=== PATIENT | male | born 1985 ===

== ENCOUNTER 2020-12-30 10:21 | Emergency (ER) | payer MEDICAID, SELFPAY ==
[2020-12-30 12:13] VITALS: BP 117/70; PULSE 82; RESP 16; TEMP 36.5; O2SAT 98; BMI 26.6
--- NOTE | 2020-12-30 12:29 | ED.URI ---
HPI - URI/Sore Throat General Chief Complaint: Upper Respiratory Symptoms Stated Complaint: strep throat Time Seen by Provider: 12/30/20 12:14 Source: patient Mode of arrival: ambulatory Limitations: no limitations History of Present Illness HPI Narrative: 35 y/o male with history of recurrent Strep pharyngitis presenting with sore throat for the last 4 days. He states pain increases with swallowing. He noticed white patches yesterday. No fever, chills, N/V/D, SOB, chest pain or cough. He reports enlarged and painful LN in his neck. No difficulty handling secretions, normal voice, no neck swelling. MD elicited complaint: sore throat Onset (ago): day(s) (4) Consistency: constant Severity: moderate Able to tolerate fluids by mouth: Yes Exacerbating factors: swallowing Relieving factors: nothing Associated symptoms: denies other symptoms Treatments prior to arrival: none Related Data Previous Rx's Medication Instructions Recorded amoxicillin 500 mg PO BID #20 tab 12/30/20 Allergies Allergy/AdvReac Type Severity Reaction Status Date / Time No Known Allergies Allergy Verified 12/30/20 12:13 Review of Systems Review of Systems: Constitutional: No Fever, No Chills ENT/Mouth: + sore throat, No Rhinorrhea, No Swallowing Difficulty, +Painful swallowing Eyes: No Eye Pain, No Swelling, No Redness Cardiovascular: No Chest Pain, No SOB Respiratory: No Cough, No Sputum Gastrointestinal: No Nausea, No Vomiting Musculoskeletal: No joint pain, No Myalgias Neuro: No Headache Heme/Lymph: + Lymphadenopathy PMFSH Past Medical History Attestation statement: The following information was validated with the patient. Surgical History (Updated 12/30/20 @ 12:16 by Stormy Pacheco) History of appendectomy Social History Social History Advance Directives: Yes Advance Directives Information Provided: Yes Advance Directives on File: No Physical Exam Vital Signs: Vital Signs: Last Vital Signs Temp 97.7 F 12/30/20 12:13 Pulse 82 12/30/20 12:13 Resp 16 12/30/20 12:13 BP 117/70 12/30/20 12:13 Pulse Ox 98 12/30/20 12:13 Body Mass Index 26.6 Appearance: Alert. Oriented X3. No acute distress. Eyes: Pupils equal, round and reactive to light. ENT: Pharynx with moderate generalized erythema, small white ulceration on posterior pharynx. Normal voice. Neck: Normal inspection. Neck with mild submadnibular LAD, small shotty LN. CVS: Normal heart rate and rhythm. Pulses normal. Respiratory: No respiratory distress. Breath sounds normal. Skin: Skin warm and dry. Normal skin color. Normal skin turgor. No rashes. Extremities: No lower extremity edema. Neuro: Oriented X 3. Non-focal. Course Course Course Narrative: 35 y/o male presenting with sore throat x4 days. Exam is consistent with Strep pharyngitis. No evidence of peritonsillar abscess. He is nontoxic appearing with normal VS. Will treat with amoxicillin and have him f/u with his PCP. Stable for d/c home with supportive care. MDM - URI/Sore Throat Differential Diagnosis Differential diagnosis: Likely upper respiratory infection, otitis media, sinusitis, viral infection, bronchitis, influenza and pharyngitis Discharge Plan Discharge Clinical Impression: Pharyngitis Qualifiers: Pharyngitis/tonsillitis etiology: unspecified etiology Qualified Code(s): J02.9 - Acute pharyngitis, unspecified Patient Disposition: Home, Self-Care Instructions: Pharyngitis (ED), Strep Throat (ED) Additional Instructions: You are being treated for probable Strep throat. Take the antibiotic as directed. Use warm salt water gargles several times per day. Use over the counter Cloraseptic [place] or Cepacol lozenges to help numb the back of your throat. Take Motrin and/or Tylenol as needed for pain. Stay hydrated. If you have worsening symptoms come back to the ER for further evaluation. Prescriptions: New amoxicillin 500 mg tablet 500 mg PO BID Qty: 20 RF: 0 Interventions: ED Discharge Assessment Last Done: 12/30/20 12:50 Discharge Date/Time: 12/30/20 12:50
== END 2020-12-30 12:50 | disposition home or self-care (01) ==
PROVIDERS: Emergency Provider Emergency Medicine
DX: J02.9 Acute pharyngitis, unspecified (principal)
CPT/HCPCS: 99283

== ENCOUNTER 2021-04-16 15:38 | Emergency (ER) | payer MEDICAID, SELFPAY ==
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
[2021-04-16 15:46] VITALS: BP 124/78; BP 142/79; PULSE 79; PULSE 98; RESP 16; TEMP 36.8; O2SAT 100; O2SAT 96; BMI 27.3
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
[2021-04-16] MEDS: iohexoL 350 MG/ML 100 ML INFUS..BTL IV (17:02)
[2021-04-16 17:45] VITALS: BP 134/68; PULSE 75; RESP 14; O2SAT 99
[2021-04-16] MEDS: Diphth,Pertus(ACell),Tet Adult 0.5 ML SYRINGE IM (17:46)
== END 2021-04-16 18:56 | disposition home or self-care (01) ==
PROVIDERS: Emergency Provider Internal Medicine
DX: S06.0X0A Concussion without loss of consciousness, initial encounter (principal); S40.212A Abrasion of left shoulder, initial encounter; S40.211A Abrasion of right shoulder, initial encounter; S20.419A Abrasion of unspecified back wall of thorax, initial encounter; S01.01XA Laceration without foreign body of scalp, initial encounter; V03.10XA Pedestrian on foot injured in collision with car, pick-up truck or van in traffic accident, initial encounter; F17.210 Nicotine dependence, cigarettes, uncomplicated; Y93.01 Activity, walking, marching and hiking; Y92.414 Local residential or business street as the place of occurrence of the external cause; Y99.9 Unspecified external cause status
CPT/HCPCS: 12032; 70450; 71260; 72125; 73030; 74177; 90471; 90715; 99284; Q9967

== ENCOUNTER 2021-05-22 09:02 | Emergency (ER) | payer MEDICAID, SELFPAY ==
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
[2021-05-22 09:17] VITALS: PULSE 100; RESP 18; TEMP 36.1; O2SAT 96; BMI 26.6
--- NOTE | 2021-05-22 09:21 | PC.NURSE ---
PATIENT EVALUATED BY DELFINO KAPLAN. CANDELARIO REMOVED. PT TOLERATED WITHOUT INCIDENT. NO REDNESS, SWELLING OR PUS DRAINAGE. PLAN IS FOR DC HOME. PT AGREEABLE
== END 2021-05-22 09:24 | disposition home or self-care (01) ==
LOC: HO.ED 09:11
PROVIDERS: Emergency Provider Emergency Medicine
DX: Z48.02 Encounter for removal of sutures (principal)
CPT/HCPCS: 99283

== ENCOUNTER 2023-09-23 14:40 | Emergency (ER) | payer SELFPAY ==
--- NOTE | ~2023-09-23 | XR_ITS ---
EXAMINATION: XR FINGER, RIGHT CLINICAL INFORMATION: Right thumb infection evaluate for osteomyelitis COMPARISON: None available. TECHNIQUE: 3 views of the right thumb including AP view of the hand FINDINGS: The bones and soft tissues are normal. No fracture. Alignment is anatomic. Joint spaces are maintained. XR/XR finger RT min 2V IMPRESSION: Normal right thumb radiographs. No radiographic evidence of osteomyelitis.
[2023-09-23 14:52] VITALS: BP 140/85; PULSE 110; RESP 18; TEMP 36.5; O2SAT 95; BMI 24.8
--- NOTE | 2023-09-23 14:55 | ED.GENADULT ---
HPI - General Adult General Chief complaint: Wound/Laceration Stated complaint: Infection R Thumb Related Data Previous Rx's Medication Instructions Recorded amoxicillin 500 mg tablet 500 mg PO BID #20 tabs 12/30/20 Allergies Allergy/AdvReac Type Severity Reaction Status Date / Time No Known Allergies Allergy Verified 09/23/23 14:51 PMFSH Past Medical History Surgical History History of appendectomy Social History Social History Patient Tobacco Use Status: Current everyday Tobacco user Physical Exam ED Vital Signs: Vital Signs - 24 hr 09/23/23 14:52 Temperature 97.7 F Pulse Rate 110 H Respiratory Rate 18 Blood Pressure 140/85 H Pulse Oximetry 95 Oxygen Delivery Method Room Air BMI result Body Mass Index 24.8 Course Course Course Narrative: Patient complains of right thumb infection, got a small cut at work and now it is red and swollen X-ray ordered to rule out osteomyelitis This rapid medical exam done in triage pending full evaluation and dispo by ER provider Discharge Plan Discharge Prescriptions: No Action amoxicillin 500 mg tablet 500 mg PO BID Qty: 20 0RF
== END 2023-09-23 19:53 | disposition left against medical advice (07) ==
LOC: HO.ED 19:49
PROVIDERS: Emergency Provider Emergency Medicine
DX: S61.011A Laceration without foreign body of right thumb without damage to nail, initial encounter (principal); W45.8XXA Other foreign body or object entering through skin, initial encounter; L08.9 Local infection of the skin and subcutaneous tissue, unspecified; M79.644 Pain in right finger(s); Y93.9 Activity, unspecified; Y92.9 Unspecified place or not applicable; Y99.0 Civilian activity done for income or pay
CPT/HCPCS: 73140; 99281; 99283

== ENCOUNTER 2023-09-24 00:49 | Emergency (ER) | payer SELFPAY ==
[2023-09-24 01:12] VITALS: BP 122/60; PULSE 87; RESP 20; TEMP 36.9; O2SAT 96; BMI 25.1
--- NOTE | 2023-09-24 02:37 | ED.GENADULT ---
HPI - General Adult General Chief complaint: General Medical Stated complaint: R thumb pain Time Seen by Provider: 09/24/23 02:37 Source: patient Mode of arrival: ambulatory Limitations: no limitations History of Present Illness HPI narrative: 38 yo male R hand dominant here with c/o R thumb pain for 1 week worse over the past 24 hours unsure if it was a cut or splinter. No bruised and red at the tip. He has been picking at it to relieve the pressure. was LWT previously MD complaint: thumb pain Onset (ago): week(s) (1) Location: upper extremity (r thumb) Radiation: non-radiation Severity: moderate Quality: aching Pain Consistency: constant Relieving factors: none Exacerbating factors: movement Associated symptoms: rash Treatments prior to arrival: other (tried to pick the area at home) Related Data Previous Rx's Medication Instructions Recorded amoxicillin 500 mg tablet 500 mg PO BID #20 tabs 12/30/20 amoxicillin 875 mg-potassium 1 tab PO BID #14 tabs 09/24/23 clavulanate 125 mg tablet hydrocodone 5 mg-acetaminophen 325 1 tab PO Q6H PRN pain #12 tabs 09/24/23 mg tablet Allergies Allergy/AdvReac Type Severity Reaction Status Date / Time No Known Allergies Allergy Verified 09/24/23 01:11 Review of Systems Review of Systems: Constitutional : No Fever, No Chills ENT/Mouth : No sore throat, No Rhinorrhea Eyes: No Eye Pain, No Swelling, No Redness Cardiovascular : No Chest Pain, No SOB Respiratory : No Cough, No Sputum Gastrointestinal : No Nausea, No Vomiting, No Diarrhea, No abdominal Pain Genitourinary : No Dysuria, No Hematuria Musculoskeletal : No joint pain, No Myalgias, No Joint Swelling Skin : No Skin Lesions, positive skin rash Neuro : No Weakness, No Numbness, No Headache All other systems reviewed and are negative [facility] Past Medical History Attestation statement: The following information was validated with the patient. Source: old records reviewed Medical History No pertinent past medical history Surgical History History of appendectomy Social History Social History Alcohol intake: never Patient Tobacco Use Status: Current everyday Tobacco user Smoked in Last 30 Days: Yes Use of substances other than those prescribed or required for medical reasons: No Advance Directives: No Advance Directives Information Provided: No Physical Exam ED Vital Signs: Vital Signs - 24 hr 09/24/23 01:12 Temperature 98.4 F Pulse Rate 87 Respiratory Rate 20 Blood Pressure 122/60 Pulse Oximetry 96 Oxygen Delivery Method Room Air BMI result Body Mass Index 25.1 Appearance: Alert. Oriented X3. No acute distress. Eyes: Pupils equal, round and reactive to light. ENT: Pharynx normal. Neck: Normal inspection. Neck supple. CVS: Normal heart rate and rhythm. Pulses normal. Respiratory: No respiratory distress. Abdomen: Soft and nontender. Skin: Skin warm and dry. Normal skin color. Normal skin turgor. Extremities: R thumb there is contusion to the distal thumb with a paronychia at the tip of the thumb is a puncture wound as well no fluctuance on the pad felt. distal NV intact, there is no fluctuance of elevation noted under the nail bed itself no extension of swelling or erythema beyond the prox nail fold Neuro: Oriented X 3. No motor deficit. No sensory deficit. Course Course Course Narrative: on discharge the patient was very upset and is asking what else we are going to do for him I stated start antibiotics, aspirate the hematoma he had, wrap his finger and start pain medications he seems very upset and walked out. Medications Administered Discontinued Medications Generic Name Dose Route Start Last Admin Trade Name Lukeq PRN Reason Stop Dose Admin Hydrocodone Bitart/Acetaminophen 1 tab 09/24/23 02:38 09/24/23 02:41 Hydrocodone Bit/Acetam 5/325 Tablet PO 09/24/23 02:39 1 tab ONCE ONE Administration Amoxicillin/Clavulanate Potassium 875 mg 09/24/23 02:38 09/24/23 02:41 Amoxicillin/Potassium Clav 875 Mg Tablet PO 09/24/23 02:39 875 mg ONCE ONE Administration Procedures Procedure Narrative Procedure Narrative: verbal consent chlorhexidine prep prox nail fold 18G aspirated blood from contused proximal nail fold there was no purulence but sondra blood came out of the contused area. there distal part of the thumb was warm and well perfused. BCR noted Medical Decision Making Medical Decision Making MDM Narrative: 38 yo male with R thumb distal puncture wound noted with ecchymosis but no crepitus and signs of paronychia vs collection of blood from him puncture finger. He had xrays done on recent visit where he LWT at this time will use 18G to alleviate pressure and aspirate area for purulence vs hematoma. He is NV intact. Will start on augmentin and instructed him to return for 24 hour check. Differential Diagnosis Differential Diagnoses: The differential diagnosis associated with the presentation includes paronychia, cellulitis, hematoma Independent Interpretation I performed an independent interpretation of an: Plain X-Ray (no fracture) Radiology Impression Discussion of test interpretation with radiology: I have reviewed the radiologist's reading. Prescription Management I considered prescription management with: Pain Medication and Antibiotic Discharge Plan Discharge Clinical Impression: Acute paronychia of right thumb Patient Disposition: Home, Self-Care Instructions: Paronychia (ED), Cellulitis (ED) Additional Instructions: return in 24 hours for a wound check or sooner if worse - return for fevers, vomiting, increased swelling or pain. keep elevated and keep clean and dry Prescriptions: New amoxicillin-pot clavulanate 875-125 mg tablet 1 tab PO BID Qty: 14 0RF hydrocodone-acetaminophen 5-325 mg tablet 1 tab PO Q6H PRN (Reason: pain) Qty: 12 0RF Rx Instructions: partial fill okay; Partial Fill upon patient request. No Action amoxicillin 500 mg tablet 500 mg PO BID Qty: 20 0RF Stand Alone Forms: Work/School Release Interventions: ED Discharge Assessment Last Done: 09/24/23 02:49 Discharge Date/Time: 09/24/23 02:51
[2023-09-24] MEDS: HYDROcodone Bit/Acetam 5/325 TABLET 1 TAB PO (02:41)
[2023-09-24] MEDS: Amoxicillin/Potassium Clav 875 MG TABLET PO (02:41)
== END 2023-09-24 02:51 | disposition home or self-care (01) ==
LOC: HO.ED 02:49
PROVIDERS: Emergency Provider Emergency Medicine
DX: L03.011 Cellulitis of right finger (principal); M79.644 Pain in right finger(s); F17.200 Nicotine dependence, unspecified, uncomplicated
CPT/HCPCS: 10160; 99283; 99284

== ENCOUNTER 2023-10-01 03:15 | Inpatient (IN) | payer SELFPAY ==
[2023-10-01] VITALS (15 sets, daily range): BP systolic 112–148; BP diastolic 57–84; PULSE 50–84; RESP 14–20; TEMP 36.5–37.1; O2SAT 96–100; BMI 23.4
--- NOTE | ~2023-10-01 | XR_ITS ---
EXAMINATION: XR HAND/WRIST, RIGHT CLINICAL INFORMATION: Abscess in the right thumb COMPARISON: 09/23/2023 TECHNIQUE: PA, lateral, and oblique views of the right hand and wrist. FINDINGS: There is new since previous examination marginal osseous destruction of the tuft of right thumb surrounded by soft tissue swelling and suggestive for osteomyelitis. There is no gas identified in the soft tissues of right thumb XR/XR hand wrist RT IMPRESSION: Osteomyelitis of right thumb
[2023-10-01 03:45] LABS: MANUAL DIFF FLAG NO
[2023-10-01 03:47] LABS: Basophils Percent Auto 0.4 % (0-2); Eosinophils Absolute Auto 0.1 X10*3/uL (0.0-0.4); Eosinophils Percent Auto 1.1 % (0-4); Hematocrit 35.4 % (42.0-52.0); Hemoglobin 11.9 g/dl (14.0-18.0); Imm Gran Abs Auto 0.02 X10*3/uL (0.00-0.03); Imm Gran Pct Auto 0.2 % (0.0-0.4); Lymphocytes Absolute Auto 2.5 X10*3/uL (1.2-4.9); Lymphocytes Percent Auto 25.4 % (20-40); Mean Corpuscular HGB Conc 33.6 g/dl (31.0-36.0); Mean Corpuscular Hemoglobin 26.3 pg (27.0-33.0); Mean Corpuscular Volume 78.3 fL (80.0-98.0); Mean Platelet Volume 9.3 fL (9.4-12.4); Monocytes Absolute Auto 0.9 X10*3/uL (0.1-1.2); Monocytes Percent Auto 9.2 % (2-11); Neutrophils Absolute Auto 6.4 x10*3/uL (2.0-8.3); Neutrophils Percent Auto 63.7 % (45-73); Platelet Count 230 X10*3/uL (160-400); Red Blood Count 4.52 X10*6/uL (4.60-5.80); Red Cell Distribution Width 12.9 % (11.0-16.0)
[2023-10-01 03:59] LABS: Lactic Acid 0.7 mmol/L (0.5-2.0)
[2023-10-01 04:04] LABS: Alanine Aminotransferase 20 U/L (0-40); Albumin Level 3.9 g/dL (3.5-5.0); Alkaline Phosphatase 63 U/L (39-117); Anion Gap 14 (12-20); Aspartate Amino Transferase 19 U/L (5-37); Bilirubin Total 0.3 mg/dL (0.0-1.0); Blood Urea Nitrogen 13 mg/dL (9-16); Calcium 9.1 mg/dL (8.4-10.2); Carbon Dioxide 28 mmol/L (22-29); Chloride 102 mmol/L (96-108); Creatinine Clr Calc Pharmacy 136.1; Estimated Glomerular Filt Rate > 60; Glucose Random 104 mg/dL (60-115); Potassium 3.5 mmol/L (3.3-5.1); Sodium 140 mmol/L (135-145); Total Protein 8.1 g/dL (6.5-8.0)
[2023-10-01] MEDS: Ketorolac Tromethamine 30 MG/ML VIAL IVPUSH (04:05)
[2023-10-01] MEDS: oxyCODONE HCl Immed Release 5 MG TABLET PO ×2 (05:07→11:11)
--- NOTE | 2023-10-01 06:43 | ED_ITS ---
HPI - Wound/Laceration General Chief Complaint: Wound/Laceration Stated Complaint: INFECTION ON RT HAND Time Seen by Provider: 10/01/23 06:38 Source: patient, EMS and old records reviewed Mode of arrival: EMS Limitations: no limitations History of Present Illness HPI narrative: 38 year old male with no significant pmhx presents to the ED for evaluation of right thumb infection x7 days. Patient states that approximately week and a half ago he had a paper cut to his right thumb. Since this time, there has been increase swelling and redness to the thumb. He was evaluated at [facility] for this 7 days ago. The area was aspirated and he was discharged home on Augmentin. Patient states that he has been taking this as prescribed for 4 days with worsening pain/swelling to the thumb. He admits to attempting to drain the area himself at home with a disinfected sewing needle without success. Reports distant history of IV drug use. Denies any recent IV drug use. Denies etoh consumption or illicit drug use. Denies fever, chills, numbness/tingling/weakness of the right upper extremity. Related Data Previous Rx's Medication Instructions Recorded amoxicillin 500 mg tablet 500 mg PO BID #20 tabs 12/30/20 amoxicillin 875 mg-potassium 1 tab PO BID #14 tabs 09/24/23 clavulanate 125 mg tablet hydrocodone 5 mg-acetaminophen 325 1 tab PO Q6H PRN pain #12 tabs 09/24/23 mg tablet Allergies Allergy/AdvReac Type Severity Reaction Status Date / Time No Known Allergies Allergy Verified 10/01/23 12:58 Review of Systems 2 Review of Systems: Constitutional: No fever, chills, fatigue, night sweats, weight changes ENT/Mouth: No ear pain, hearing loss, nasal congestion, sinus pain, rhinorrhea, sore throat Eyes: No eye pain, swelling, redness, vision changes, discharge Cardio: No chest pain, palpitations, ROGERS, orthopnea, peripheral edema Pulm: No SOB, cough, sputum, wheezing, dyspnea, hemoptysis GI: No nausea, vomiting, hematemesis, abdominal pain, diarrhea, constipation, hematochezia, melena : No irregular bleeding, dysuria, frequency, urgency, hesitancy, hematuria, flank pain, urinary flow changes, urinary incontinence or retention MSK: No back pain, neck pain, joint pain, myalgias Skin: No lesions, rashes, +pain/swelling to right thumb Neuro: No weakness, numbness, paresthesias, LOC, dizziness, headache Psych: No anxiety/panic, depression, SI/HI, AH/VH All other systems reviewed and are negative. [facility] Past Medical History Attestation statement: The following information was validated with the patient. Source: old records reviewed and nursing notes reviewed Medical History (Updated 10/01/23 @ 13:02 by ROSAURA Maloney) No pertinent past medical history Surgical History (Updated 10/01/23 @ 12:57 by Nimo Mejia) H/O neck surgery History of appendectomy Social History Social History Alcohol intake: never Patient Tobacco Use Status: Current everyday Tobacco user Smoked in Last 30 Days: Yes Use of substances other than those prescribed or required for medical reasons: No Advance Directives: No Physical Exam 2 Vital Signs: Vital Signs: Last Vital Signs Temp 98.3 F 10/01/23 10:45 Pulse 65 10/01/23 10:45 Resp 18 10/01/23 10:45 BP 112/61 10/01/23 10:45 Pulse Ox 98 10/01/23 10:45 O2 Del Method Room Air 10/01/23 10:45 BMI result Body Mass Index 23.4 Vital signs stable, afebrile. Const: Other: + somnolent, responsive to verbal stimul i General: cooperative, no acute distress, alert and awake O rientation/consciousness: patient oriented x3 Limitations: no limitations HEENT: Head: Yes normal to inspection, Yes normocephalic and Yes atraumatic Eyes: General: appearance normal, both eyes and all related structures C onjunctivae: conjunctivae normal Sclerae: sclerae normal Pupils: Pinpoint pupils Neck: Neck: Yes normal visual inspection and Yes full ROM Resp: Effort & Inspection: normal respiratory effort Auscultation: clear to auscultation bilaterally Cardio: Other: 2+ radial and ulnar pulses Rate: regular rate Rhythm: regular rhythm GI: Inspection: Yes normal to inspection Palpation (GI): Soft to palpation and nontender Back/Spine/Pelvis: Other: No midline spinous tenderness or step off deformity. No paraspinal muscle tenderness. Skin: Other: + refer to photo below Neuro: General: patient oriented x3, gait normal and moves all extremities Gait exam (Neuro): Normal gait present Extrem: Other: + refer to photo below of right 1st digi t + overlying cellulitic changes noted to distal right 1st digit. Open area noted to ulnar aspect of right thumb s/p needle aspiration last week. No obvious pointing or streaking. Limited ROM of MCP and DIP of right 1st digit. Warm. Tender to palpation. No palpable fluctuance. General: Yes capillary refill normal Psych: Appearance: disheveled Course Course Course Narrative: 0716-- CBC without leukocytosis. Microcytic anemia, H & H stable. No left shift. Chemistry without acute electrolyte abnormality requiring intervention. Lipase WNL at 0.7. Vitals are WNL. There is no concern for sepsis at this time however will obtain blood cultures given exam findings. Repeat x-ray ordered to assess for depth of infection. Will administer a dose of IV antibiotic in the ED and reassess. > on exam, patient somnolent but responsive to verbal stimuli. I have repeatedly asked patient if he endorses any drug use and he denies. urine drug screen ordered. 0831-- X-ray of right hand/wrist showing osteomyelitis of the right thumb. IV Zosyn and IV vanco ordered for broad-spectrum coverage. Dr. Armijo informed of results and will be down to examine patient at bedside. 1015-- Dr. Armijo at bedside. Upon evaluation and review of results, patient will be admitted to surgical service. Medications Administered Generic Name Dose Route Start Last Admin Trade Name Freq PRN Reason Stop Dose Admin Oxycodone HCl 5 mg 10/01/23 10:23 10/01/23 11:11 Oxycodone Hcl Immed Release 5 Mg Tablet PO 5 mg Q4H PRN Administration Pain, Moderate(Pain Scale 4-6) Discontinued Medications Generic Name Dose Route Start Last Admin Trade Name Freq PRN Reason Stop Dose Admin Piperacillin Sod/Tazobactam 50 mls @ 100 mls/hr 10/01/23 08:09 10/01/23 09:20 Sod 3.375 gm/ Sodium Chloride IV 10/01/23 08:38 Infused ONCE ONE Infusion Vancomycin HCl 1,000 mg/ 535 mls @ 267.5 mls/hr 10/01/23 08:26 10/01/23 09:57 Vancomycin HCl 750 mg/ Sodium IV 10/01/23 10:25 267.5 mls/hr Chloride ONCE ONE Administration Ketorolac Tromethamine 30 mg 10/01/23 04:02 10/01/23 04:05 Ketorolac Tromethamine 30 Mg/Ml Vial IVPUSH 10/01/23 04:03 30 mg ONCE ONE Administration Oxycodone HCl 5 mg 10/01/23 04:50 10/01/23 05:07 Oxycodone Hcl Immed Release 5 Mg Tablet PO 10/01/23 04:51 5 mg ONCE ONE Administration Medical Decision Making Medical Decision Making [facility] Narrative: 38 year old male with no significant pmhx presents to the ED for evaluation of right thumb infection x7 days. Patient states that approximately week and a half ago he had a paper cut to his right thumb. Vital signs stable, afebrile. Patient is somnolent on exam however responsive to verbal stimuli. Please refer to physical exam section for findings. Clinical concern for cellulitis, abscess, osteomyelitis. Lower suspicion for fracture, dislocation, sepsis, bacteremia. Plan for labs, lactic, blood cultures, xrs, pain control, and IV antibiotics. Differential Diagnosis Differential Diagnoses: The differential diagnosis associated with the presentation includes As above. Admission/Observation Consideration of admission/observation: Escalation of care including admission/observation considered In this patient with ongoing skin infection and evidence of osteomyelitis on x- ray, patient will be admitted. Consult Healthcare Provider Management of the patient was discussed with: Breaker Layer (Dr. Aleksander Vasquez) Lab Data [facility] Lab Attestation statement: I reviewed the patient's lab results. as above. 10/01/23 03:40 10/01/23 03:40 Labs: Lab Results 10/01/23 10/01/23 Range/Units 03:40 11:12 WBC 10.0 (4.8-10.8) X10*3/uL RBC 4.52 L (4.60-5.80) X10*6/uL Hgb 11.9 L (14.0-18.0) g/dl Hct 35.4 L (42.0-52.0) % MCV 78.3 L (80.0-98.0) fL MCH 26.3 L (27.0-33.0) pg MCHC 33.6 (31.0-36.0) g/dl RDW 12.9 (11.0-16.0) % Plt Count 230 (160-400) X10*3/uL MPV 9.3 L (9.4-12.4) fL Immature Gran % (Auto) 0.2 (0.0-0.4) % Neut % (Auto) 63.7 (45-73) % Lymph % (Auto) 25.4 (20-40) % [place] % (Auto) 9.2 (2-11) % Eos % (Auto) 1.1 (0-4) % Baso % (Auto) 0.4 (0-2) % Lymph # (Auto) 2.5 (1.2-4.9) X10*3/uL [place] # (Auto) 0.9 (0.1-1.2) X10*3/uL Eos # (Auto) 0.1 (0.0-0.4) X10*3/uL Baso # (Auto) 0.0 (0.0-0.2) X10*3/uL Abs Immat Gran (auto) 0.02 (0.00-0.03) X10*3/uL Absolute Neuts (auto) 6.4 (2.0-8.3) x10*3/uL Absolute Nucleated RBC 0.000 (0.0-0.012) X10*3/uL Nucleated RBC % (auto) 0.0 (0.0-0.2) /100WBC ESR 28 H (0-15) MM/HR Sodium 140 (135-145) mmol/L Potassium 3.5 (3.3-5.1) mmol/L Chloride 102 (96-108) mmol/L Carbon Dioxide 28 (22-29) mmol/L Anion Gap 14 (12-20) BUN 13 (9-16) mg/dL Creatinine 0.75 (0.5-1.4) mg/dL Estim Creat Clear Calc 136.1 Estimated GFR > 60 Random Glucose 104 (60-115) mg/dL Lactic Acid 0.7 (0.5-2.0) mmol/L Calcium 9.1 (8.4-10.2) mg/dL Total Bilirubin 0.3 (0.0-1.0) mg/dL AST 19 (5-37) U/L ALT 20 (0-40) U/L Alkaline Phosphatase 63 (39-117) U/L Total Creatine Kinase 95 (38-174) U/L C-Reactive Protein 1.69 H (< or = 0.50) mg/dL Total Protein 8.1 H (6.5-8.0) g/dL Albumin 3.9 (3.5-5.0) g/dL Urine Opiates Screen POSITIVE H (Not Detect) Urine Fentanyl Screen POSITIVE H (Not Detect) Ur Barbiturates Screen Not Detected (Not Detect) Ur Phencyclidine Scrn Not Detected (Not Detect) Ur Amphetamines Screen Not Detected (Not Detect) U Benzodiazepines Scrn Not Detected (Not Detect) Urine Cocaine Screen POSITIVE H (Not Detect) U Marijuana (THC) Screen Not Detected (Not Detect) Independent Interpretation I performed an independent interpretation of an: Plain X-Ray Interpretation: I have personally reviewed patient's x-ray and agree with radiologist's interpretation. Radiology Impression Discussion of test interpretation with radiology: I have reviewed the radiologist's reading. Radiologist Impression: XR hand wrist RT IMPRESSION: Osteomyelitis of right thumb Independent Historian Clinical information obtained from an independent historian. History obtained from or confirmed by: EMS External Record Review External record reviewed: Inpatient record, Office record, Outpatient record, Prior outpatient labs, Prior outpatient radiology, Primary care record and Outside ED record Tests considered The following testing was considered but not selected: I considered obtaining CT of right thumb however evidence of osteomyelitis already identifiable and x-ray, not indicated. Prescription Management I considered prescription management with: Pain Medication (Oxycodone) and Antibiotic (Vanco and Zosyn) Chronic Conditions Patient?s care impacted by: Other (IVDU) Social Determinants Patient?s care significantly limited by Social Determinants of Health including: Other Social Determinant of Health Critical Care Time Critical Care Time Critical Care Time: Yes Total Critical Care Time: 60 Attestation: Critical care time in the amount of 60 minutes has been provided to the patient in terms of direct patient care, frequent reevaluation, consultation with orthopedics and hand surgeon, review and interpretation of medical data and results, and management of potentially life-threatening conditions. This is all outside of any medical procedures. Discharge Plan Discharge Clinical Impression: Osteomyelitis Qualifiers: Osteomyelitis location: hand Laterality: right Patient Disposition: Admitted As Inpatient
[2023-10-01] MEDS: Piperacillin Sodium/Tazobactam 3.375 GM in 0.9 % Sodium Chloride 50 ML IV (08:47)
[2023-10-01 09:45] LABS: C Reactive Protein 1.69 mg/dL (< or = 0.50)
[2023-10-01] MEDS: vancomycin HCL 1,000 MG, vancomycin HCL 750 MG in 0.9 % Sodium Chloride 500 ML 267.5 MG IV (09:57)
[2023-10-01 10:13] LABS: Erythrocyte Sedimentation Rate 28 MM/HR (0-15)
--- NOTE | 2023-10-01 10:19 | P.CONOP_ITS ---
History of Present Illness HPI Consult date: 10/01/23 Chief complaint: INFECTION ON RT HAND Narrative: Patient is a 38-year-old man consulted for us to see in the ED with a few weeks' history of an infection in the tip of the right thumb. He says it began with a paper type cut from the glass on his cell phone. He said initially it did not seem like much, but he was seen in the ED about 4-5 days ago with a felon and was treated with oral Augmentin. Unfortunately, the pain and swelling have gotten worse. The pain is now extending up his thumb to about the palmar digital crease level at the A1 jojo. [facility] Past Medical History Medical History No pertinent past medical history Surgical History Surgical History History of appendectomy Social History Social History Alcohol intake: never Patient Tobacco Use Status: Current everyday Tobacco user Smoked in Last 30 Days: Yes Use of substances other than those prescribed or required for medical reasons: No Advance Directives: No Meds Allergies Allergy/AdvReac Type Severity Reaction Status Date / Time No Known Allergies Allergy Verified 09/24/23 01:11 Active Medications: Current Medications Vancomycin HCl 1,000 mg/Vancomycin HCl 750 mg/ Sodium Chloride 535 mls @ 267.5 mls/hr IV ONCE ONE Stop: 10/01/23 10:25 Last Admin: 10/01/23 09:57 Dose: 267.5 mls/hr Physical Exam 2 Vital Signs: Vital Signs: Last Vital Signs Temp 98.4 F 10/01/23 07:35 Pulse 60 10/01/23 07:35 Resp 18 10/01/23 07:35 BP 116/57 L 10/01/23 07:35 Pulse Ox 100 10/01/23 07:35 O2 Del Method Room Air 10/01/23 07:35 BMI result Body Mass Index 23.4 Const: General: cooperative, healthy appearing and no acute distress O rientation/consciousness: oriented to person and oriented to place HEENT: Head: Yes normocephalic and Yes atraumatic Eyes: EOM: EOMs intact bilaterally Resp: Effort & Inspection: normal respiratory effort and able to speak in complete sentences Cardio: Jugular venous distension: no JVD Skin: General skin exam: turgor normal Rashes: no rashes Neuro: General: oriented to person and oriented to place Extrem: Other: Evaluation of right Upper Extremity: The patient was alert oriented and in no acute distress. Regarding his right hand he appears to have clinical evidence of a felon involving the tip of his right thumb. It looks like there was a transverse laceration at the tip of the thumb. He says this is where the infection started several weeks ago. The pad of the thumb distal to the IP joint of the right thumb is grossly swollen and hyperemic appearing. The area is tender to palpation. He also has some tenderness extending along the flexor tendon sheath to about the A1 jojo level. Mild achiness over the thenar mass. Not particularly tender over the carpal tunnel. Pain with active or passive motion of the IP joint of the right thumb. Regarding the index middle ring and small fingers they have no swelling or erythema. He has good active flexion and extension between a fist and full extension without pain. Radiographs: Three views of the right hand were taken today and reviewed by me. They show no fracture, but there is evidence of osteolysis in the volar distal aspect of the right thumb distal phalanx consistent with osteomyelitis. No foreign body seen. Psych: Appearance: grossly normal Affect: normal affect Attitude: c ooperative Results Labs 10/01/23 03:40 10/01/23 03:40 Labs: Abnormal lab results 10/01/23 Range/Units 03:40 RBC 4.52 L (4.60-5.80) X10*6/uL Hgb 11.9 L (14.0-18.0) g/dl Hct 35.4 L (42.0-52.0) % MCV 78.3 L (80.0-98.0) fL MCH 26.3 L (27.0-33.0) pg MPV 9.3 L (9.4-12.4) fL ESR 28 H (0-15) MM/HR C-Reactive Protein 1.69 H (< or = 0.50) mg/dL Total Protein 8.1 H (6.5-8.0) g/dL H & H 10/01/23 Range/Units 03:40 Hgb 11.9 L (14.0-18.0) g/dl Hct 35.4 L (42.0-52.0) % All other labs normal. Assessment and Plan (1) Felon of finger of right hand: Status: Acute (2) Laceration of right thumb with infection: Status: Acute (3) Flexor tenosynovitis of thumb: Status: Acute Plan Assessment and plan: 1. Right thumb felon and flexor tenosynovitis 2. Right thumb distal phalanx osteomyelitis related to above. I educated the patient about this condition He was seen in the emergency department today. I discussed operative and non operative treatment options and I am recommending an operative I and D with admission for IV antibiotics. The risks and benefits of operative treatment were discussed with the patient and the patient wishes to proceed with surgery. These risks include, but are not limited to risk of damage to blood vessels, nerves, tendons, infection, recurrence, incomplete relief of preoperative symptoms, persistent pain, possible need for further surgery and the risks associated with regional blocks and anesthesia. The plan is to take the patient to the operating room today for the following procedures: 1. Right thumb I and D of bone, felon and flexor tendon sheath. 2. [ ] All of the preoperative paperwork including the consent was filled out today. All the patient's questions were answered. Procedures Date of Service Date of Service: 10/01/23
--- NOTE | 2023-10-01 10:21 | PC.NURSE ---
report given to surgery, patient remains alert and oriented sleeping on and off with even and unlabored respirations. reporting improvement in pain after medication earlier this morning. vanco infusing at this time. no obvious signs/symptoms of distress noted. call heard within reach.
--- NOTE | 2023-10-01 11:03 | MHC.SHP ---
Pre-Procedural Eval Section A - 24 Hr Update-Section A only Date of Service: 10/01/23 The patient is an INPATIENT: Yes Changes since office visit: No Cold of Flu in the past 2 weeks, No New Medical Problems, No Changes in Medication and No Patient answered all questions The patient has been examined within 24 hours of the surgical procedure. The History & Physical has been completed within 30 days and I have reviewed it.: Yes Section B - Complete if H&P > 30 days Chief Complaint: INFECTION ON RT HAND Allergies: Allergies Allergy/AdvReac Type Severity Reaction Status Date / Time No Known Allergies Allergy Verified 09/24/23 01:11 Plan I have reviewed the history and physical and performed a pertinent physical examination on my patient. No changes have occurred unless specified. Time Spent With Patient Time: Total time managing care of this patient today ____ minutes.
--- NOTE | 2023-10-01 11:04 | W.PM.OPN ---
Operative Note Operative Note Date of Service: 10/01/23 Narrative: Operative Note Narrative: Preop diagnosis: 1. Right thumb flexor tenosynovitis, and felon 2. Right thumb distal phalanx osteomyelitis Postop diagnosis: Same Procedure: 1. Right thumb I and D felon 2. Right thumb I and D flexor tendon sheath 3. Right thumb I and D distal phalanx bone Surgeon: Ivory Armijo MD Anesthesia: Regional block Findings: Copious amounts of thick creamy yellow/green purulence from the tip of the thumb extending from the ulnar tip of the distal phalanx. Evidence of osteomyelitis with violation of the cortex of the ulnar tip of the distal phalanx. Loss of some of the skin at the ulnar tip of the distal phalanx secondary to infection related necrosis. No gross purulence identified in the flexor tendon sheath at the A1 jojo, though there was some watery exudate. Irrigation of the flexor tendon sheath from proximal at the A1 jojo, to distal did not lead to irrigation through the wound at the tip of the thumb. Implants: Small piece of iodoform gauze placed as a drain in the tip of the thumb Tourniquet time: 25 minutes EBL: 5.0 ml Specimen: Cultures of soft tissue and bone Drains: None Complications: None Disposition: Brought to the recovery room in stable condition Plan: Admit for IV antibiotics Be aware - Despite patient denial of use of recreational drugs for years , tox screen positive for multiple substances. Check cultures and adjust antibiotics. Infectious disease consult for osteomyelitis. Be aware gross purulence extending from the distal phalanx. Osteomyelitis is certain. Possibility of negative cultures exists because of oral antibiotics for several days, and IV antibiotics given in ED prior to I&D. Dressing change and wound check and pull the drain tomorrow Possible repeat I and D on Thursday Anticipate wound check within a week of discharge, depending on wound. Indications: The patient is a 38 year old man with a right thumb felon, flexor tenosynovitis and osteomyelitis of the distal phalanx . The risks and benefits of operative treatment, including but not limited to risk of damage to blood vessels, nerves, tendons, infection, recurrence, persistent pain or numbness, incomplete resolution of preoperative symptoms, or need for further surgery were discussed with the patient and they wished to proceed with surgery. Procedure: Once consent was obtained patient was brought back to the operating suite and placed in the operating table in a supine position. Because of his positive drug screen a regional block and sedation was administered by the anesthesia team. A tourniquet was applied to the proximal aspect of the right upper extremity and the limb was prepped and draped in a standard surgical fashion. The limb was elevated and the tourniquet inflated to 250 mm of mercury for a total tourniquet time of 25 minutes. I began with making an oblique incision over the A1 jojo area of the right thumb. Incision was made through the skin to the subcutaneous tissues using a 15. Blade. I then carefully dissected down to the level of the A1 jojo using tenotomy scissors with care being taken to protect the neurovascular structures. The A1 jojo was then released making a longitudinal incision in the A1 jojo using a 15. Blade followed by tenotomy scissors under direct visualization. There was some watery exudate that could be associated with inflammation related to the infection, but no gross purulence in this area or within the flexor tendon sheath. I then made an oblique incision over the pad of the patient's right thumb over the apex of the felon/abscess. Incision was made through the skin into the subcutaneous tissues using a 15. Blade. Copious amounts of thick creamy yellow/green purulent material was found, and extended down to the ulnar tip of the distal phalanx. Cultures x3 were taken of the purulent material. I used tenotomy scissors to adequately debride and free up the septae a in the pad of the thumb. I also debrided some of the nonviable necrotic tissue from about the wound. Bone cultures were also obtained using a small rongeur. This was sent separately for cultures. I did irrigate from proximal at the A1 jojo through the flexor tendon sheath in the distal direction. We did not have the saline exit through the wound at the tip of the thumb. I am hopeful therefore that the abscess did not extend to the flexor tendon sheath of the thumb. The Wound at the tip of the thumb was copiously irrigated with normal saline using both a bulb syringe and an Angiocath.. Again this abscess extended down to the volar ulnar aspect of the distal phalanx with violation of the cortex in this area.. This was then debrided using a small curette. The wound and Bone were again copiously irrigated using normal saline. At this point the tourniquet was deflated and hemostasis obtained with a brief period of local pressure . The wound again was copiously irrigated with normal saline. The skin edges over the A1 jojo were loosely reapproximated with a single 4-0 nylon suture. A single piece of quarter-inch iodoform was placed in the tip of the thumb as a drain, and the distal wound at the tip of the thumb was left open to facilitate drainage.. A sterile dressing was applied. The patient appears to have tolerated the procedure well and with no complications. All digits were well vascularized conclusion of the case.
[2023-10-01 12:17] LABS: Amphetamine Screen Urine Not Detected (Not Detect); Barbiturates, Urine Not Detected (Not Detect); Benzodiazepines Screen Urine Not Detected (Not Detect); Cannabinoid Screen Urine Not Detected (Not Detect); Cocaine Screen Urine POSITIVE (Not Detect); Fentanyl, urine POSITIVE (Not Detect); Opiate Screen Urine POSITIVE (Not Detect); Phencyclidine Screen Urine Not Detected (Not Detect)
--- NOTE | 2023-10-01 13:44 | PHA.PROG ---
Admission Date/Time: October 01, 2023 10:23 Indication: BONE AND JOINT INFECTION Weight in k.9 kg Adjusted body weight in Kg: [place] body weight in Kg: Obesity Dosing Indication % IBW: Serum Creatinine - Last 168 Hours 10/01/23 03:40 Creatinine 0.75 Estimated CrCl and GFR - Last 168 Hours 10/01/23 03:40 Estim Creat Clear Calc 136.1 Estimated GFR > 60 Vancomycin Loading Dose: 1750 MG Current Vancomycin Dosing Regimen: 1500 MG Q12H Vancomycin Monitoring using AUC goal of 400 - 600 range with trough as surrogate marker: AUC 592 MG/L.HR TROUGH 16.9 MG/L Date and Time for next Vancomycin Level to be drawn: 10/02/23 @1999 Pharmacist Comments on Vancomycin Plan: Due to indication of bone and joint infection + good renal functions (sCr of 0.75 and CrCl of 136.1) + age, dose is started at 1500 mg q12h, next random is schedule for 10/02/23. Vancomycin dosing will take advantage of [employer] as a clinical decision support tool that uses Bayesian modeling to calculate individual patient's pharmacokinetic parameters and forecast the patient's drug concentration time course with the target goal AUC 24 range of 400 - 600 mg/L/hr.
--- NOTE | 2023-10-01 14:00 | P.CONAN_ITS ---
HPI - Anesthesia Eval Consult details Narrative: for i and D on oct 01, urine tox screen positive . [facility] Active Problems Active Problems: All Active Problems (Updated 10/01/23 @ 13:02 by ROSAURA Maloney) Osteomyelitis (Acute) Flexor tenosynovitis of thumb (Acute) Laceration of right thumb with infection (Acute) Felon of finger of right hand (Acute) Past Medical History Medical History No pertinent past medical history Family History Family history of problems with anesthesia: No Surgical History Surgical History H/O neck surgery History of appendectomy History of Problems with Anesthesia: No Social History Social History Household Members: None Housing: Apartment Do you presently have visiting nurse or other home services: No Alcohol intake: never Patient Tobacco Use Status: Current someday Tobacco user Tobacco use type: Cigarette Smoked in Last 30 Days: Yes Patient Interested in Nicotine Replacement: No Use of substances other than those prescribed or required for medical reasons: Yes Substance Use Type: Opiates Substance Use Frequency: Weekly Last Used Substance: Days (ago) Currently Displaying Signs/Symptoms of Drug Intoxication Withdrawal: No Any prior treatment program specific to substance use: Yes Have you been hit, kicked, punched, or otherwise hurt by someone within the past year? If so, by whom?: No Do you feel safe in your current relationship?: Yes Is there a partner from a previous relationship who is making you feel unsafe now?: No Are you made to feel afraid or neglected: No Are you DNR?: No Advance Directives: No Do you have thoughts of harming others: None Do you have a plan to hurt others: No Plan Recently lost weight without trying: No Nutrition Risks: No Nutritional Risk Meds Allergies Allergy/AdvReac Type Severity Reaction Status Date / Time No Known Allergies Allergy Verified 10/01/23 12:58 Active Medications: Current Medications Acetaminophen (Acetaminophen 325 Mg Tablet) 650 mg PO Q6H PRN PRN Reason: Pain, Mild (Pain Scale 1-3) Last Admin: 10/02/23 05:25 Dose: 650 mg Lactated Ringer's (Lr) 1,000 mls @ 100 mls/hr IVCONT .Q10H [facility] Last Admin: 10/02/23 08:23 Dose: 100 mls/hr Vancomycin HCl 1,500 mg/ (Sodium Chloride) 500 mls @ 333.333 mls/hr IV Q12H [facility] Last Infusion: 10/01/23 23:19 Dose: Infused Oxycodone HCl (Oxycodone Hcl Immed Release 5 Mg Tablet) 5 mg PO Q4H PRN PRN Reason: Pain, Moderate(Pain Scale 4-6) Last Admin: 10/02/23 05:25 Dose: 5 mg Pharmacy Consult (Consult Rx Vancomycin Dosing) 1 each MISCELLANE DAILY PRN PRN Reason: Consult order Sodium Chloride (0.9 % Sodium Chloride Flush 3 Ml Syringe) 3 ml IVFLUSH QSHIFT [facility] Last Admin: 10/02/23 08:24 Dose: Not Given Exam Height,Weight and Vital Signs: Height 5 ft 9 in Weight 71.9 kg Last Vital Signs Temp 97.0 F 10/02/23 07:30 Pulse 52 10/02/23 07:30 Resp 18 10/02/23 07:30 BP 114/65 10/02/23 07:30 Pulse Ox 98 10/02/23 07:30 O2 Del Method Room Air 10/02/23 07:30 Pertinent Lab Results Pertinent Lab Results: Laboratory Tests 10/01/23 10/01/23 10/02/23 03:40 11:12 05:22 WBC 10.0 8.6 RBC 4.52 L 4.29 L Hgb 11.9 L 11.3 L Hct 35.4 L 33.6 L MCV 78.3 L 78.3 L MCH 26.3 L 26.3 L MCHC 33.6 33.6 RDW 12.9 12.8 Plt Count 230 197 MPV 9.3 L 9.1 L Immature Gran % (Auto) 0.2 0.3 Neut % (Auto) 63.7 67.2 Lymph % (Auto) 25.4 23.3 [place] % (Auto) 9.2 8.9 Eos % (Auto) 1.1 0.1 Baso % (Auto) 0.4 0.2 Lymph # (Auto) 2.5 2.0 [place] # (Auto) 0.9 0.8 Eos # (Auto) 0.1 0.0 Baso # (Auto) 0.0 0.0 Abs Immat Gran (auto) 0.02 0.03 Absolute Neuts (auto) 6.4 5.8 Absolute Nucleated RBC 0.000 0.000 Nucleated RBC % (auto) 0.0 0.0 ESR 28 H Sodium 140 138 Potassium 3.5 3.9 Chloride 102 105 Carbon Dioxide 28 26 Anion Gap 14 11 L BUN 13 10 Creatinine 0.75 0.72 Estim Creat Clear Calc 136.1 141.8 Estimated GFR > 60 > 60 Random Glucose 104 Fasting Glucose 112 H Lactic Acid 0.7 Calcium 9.1 8.8 Total Bilirubin 0.3 AST 19 ALT 20 Alkaline Phosphatase 63 Total Creatine Kinase 95 C-Reactive Protein 1.69 H Total Protein 8.1 H Albumin 3.9 Urine Opiates Screen POSITIVE H Urine Fentanyl Screen POSITIVE H Ur Barbiturates Screen Not Detected Ur Phencyclidine Scrn Not Detected Ur Amphetamines Screen Not Detected U Benzodiazepines Scrn Not Detected Urine Cocaine Screen POSITIVE H U Marijuana (THC) Screen Not Detected Airway Mallampati Class: II TM Dist: >3cm Neck ROM: Full Heart: rrr Lungs: cta Assessment and Plan Assessment Anesthesia Assessment: Anesthesia Plan Discussed and Chart Reviewed Final Anesthetic Review Family History of Problems with Anesthesia: No History of Problems with Anesthesia: No NPO: Yes ASA Class: III Final Preanesthetic Review: No Changes in Pt Med Stat, Meds/Allgs Chart Reviewed, Consent Obtained/Reviewed and Anes Risks/Benef Reviewed Patient Risk: Intermediate Procedure Risk: Intermediate Anesthetic Plan Anesthetic Plan: Regional Block Disposition: Standard PACU
--- NOTE | 2023-10-01 14:08 | PHA.MEDREC ---
Pharmacy Consult ? Medication Reconciliation Pharmacy has completed the medication reconciliation. reviewed med rec done by shari rosario. rn states pt confirmed he is only on amoxicillin and NOT augmentin.
[2023-10-01] MEDS: Lactated Ringers 1,000 ML 100 ML IVCONT (19:51)
[2023-10-01] MEDS: vancomycin HCL 1,500 MG in 0.9 % Sodium Chloride 500 ML 333.33 MG IV (21:45)
[2023-10-02 03:31] VITALS: BP 125/63; PULSE 59; RESP 16; TEMP 36.3; O2SAT 98
[2023-10-02] MEDS: Acetaminophen 325 MG TABLET 650 MG PO (05:25)
[2023-10-02] MEDS: oxyCODONE HCl Immed Release 5 MG TABLET PO ×5 (05:25→20:46)
[2023-10-02 05:27] LABS: MANUAL DIFF FLAG NO
[2023-10-02 05:30] LABS: Basophils Percent Auto 0.2 % (0-2); Eosinophils Percent Auto 0.1 % (0-4); Hematocrit 33.6 % (42.0-52.0); Hemoglobin 11.3 g/dl (14.0-18.0); Imm Gran Abs Auto 0.03 X10*3/uL (0.00-0.03); Imm Gran Pct Auto 0.3 % (0.0-0.4); Lymphocytes Percent Auto 23.3 % (20-40); Mean Corpuscular HGB Conc 33.6 g/dl (31.0-36.0); Mean Corpuscular Hemoglobin 26.3 pg (27.0-33.0); Mean Corpuscular Volume 78.3 fL (80.0-98.0); Mean Platelet Volume 9.1 fL (9.4-12.4); Monocytes Absolute Auto 0.8 X10*3/uL (0.1-1.2); Monocytes Percent Auto 8.9 % (2-11); Neutrophils Absolute Auto 5.8 x10*3/uL (2.0-8.3); Neutrophils Percent Auto 67.2 % (45-73); Platelet Count 197 X10*3/uL (160-400); Red Blood Count 4.29 X10*6/uL (4.60-5.80); Red Cell Distribution Width 12.8 % (11.0-16.0); White Blood Count 8.6 X10*3/uL (4.8-10.8)
[2023-10-02 05:55] LABS: Anion Gap 11 (12-20); Blood Urea Nitrogen 10 mg/dL (9-16); Calcium 8.8 mg/dL (8.4-10.2); Carbon Dioxide 26 mmol/L (22-29); Chloride 105 mmol/L (96-108); Creatinine Clr Calc Pharmacy 141.8; Estimated Glomerular Filt Rate > 60; Glucose Fasting 112 mg/dL (60-99); Potassium 3.9 mmol/L (3.3-5.1); Sodium 138 mmol/L (135-145)
[2023-10-02 07:30] VITALS: BP 114/65; PULSE 52; RESP 18; TEMP 36.1; O2SAT 98
--- NOTE | 2023-10-02 07:34 | PM.PNORT ---
Subjective Subjective Date of Service: 10/02/23 Interval history: POD1 s/p right thumb I&D Patient is resting in bed comfortably No overnight events Pain is managed No additional complaints Physical Exam Vital Signs: Vital Signs: Last Vital Signs Temp 97.0 F 10/02/23 07:30 Pulse 52 10/02/23 07:30 Resp 18 10/02/23 07:30 BP 114/65 10/02/23 07:30 Pulse Ox 98 10/02/23 07:30 O2 Del Method Room Air 10/02/23 07:30 BMI result Body Mass Index 23.4 Const: General: cooperative, healthy appearing and no acute distress Resp: Effort & Inspection: normal respiratory effort and able to speak in complete sentences Cardio: Rate: regular rate Peripheral pulses: Peripheral pulses 2+ throughout GI: Palpation (GI): Soft to palpation Skin: Lesions: no lesions Rashes: no rashes Extrem: Other: Right thumb dressings are clean, dry, and intact. Dressings removed and packing pulled at bedside. No active drainage at the finger tip. Procedures Date of Service Date of Service: 10/02/23 Progress Note: A&P Assessment and plan (1) Osteomyelitis: Status: Acute Assessment and Plan: Continue pain mgmnt Dressing changes once a day- Orders placed Dressing changed this morning at bedside and packing pulled ID consult pending and [place] Text placed to provider Dispo planning-Pending ID ocnsult with reccomendations, possible repeat I&D Thursday if patient is still here (2) Flexor tenosynovitis of thumb: Status: Acute (3) Laceration of right thumb with infection: Status: Acute (4) Felon of finger of right hand: Status: Acute Time Spent With Patient Time: Total time managing care of this patient today ____ minutes. Quality Stroke Does the patient have a stroke diagnosis?: No VTE Prior VTE?: No VTE Risk Level:: Surgical - low VTE Device Contraindication: N/A - Device Ordered VTE Drug Contraindication: Treatment Not Indicated
[2023-10-02] MEDS: Lactated Ringers 1,000 ML 100 ML IVCONT ×2 (08:23→19:52)
--- NOTE | 2023-10-02 08:32 | HO.POSTANES ---
Post Anesthesia Evaluation Post Anesthesia Evaluation Date of Service: 10/02/23 Vital Signs: Vital Signs Temp Pulse Resp BP Pulse Ox O2 Del Method 10/02/23 07:30 97.0 F 52 18 114/65 98 Room Air 10/02/23 03:31 97.3 F 59 16 125/63 98 Anesthesia: Monitored and Nerve Block Mental Status: Awake Pain Control: Satisfactory Nausea/Vomiting: None Hydration: Adequate Anesthesia-Related Issues: No Anes. Related Issues
--- NOTE | 2023-10-02 08:39 | P.CONIM_ITS ---
History of Present Illness Data of Consult Service Date: 10/02/23 Primary Care Provider: None Physician HPI Reason for consult: MEdical management A 38 years old male with PMH of infected tip of right thumb few weeks ago complicated by felon that failed to respond to Augmentin and he ended up in the hospital with swelling and erythema. Images were concerning for osteomyelitis of the thumb. admitted for surgical intervention by orthopedic team. No other medical problems. Review of Systems 2 Review of Systems: No chest pain, palpitation No shortness of breath or coughing No abdominal pain, nausea or vomiting No urinary symptoms PMFSH Medical History No pertinent past medical history Surgical History H/O neck surgery History of appendectomy Social History Household Members: None Housing: Apartment Do you presently have visiting nurse or other home services: No Alcohol intake: never Patient Tobacco Use Status: Current someday Tobacco user Tobacco use type: Cigarette Smoked in Last 30 Days: Yes Patient Interested in Nicotine Replacement: No Use of substances other than those prescribed or required for medical reasons: Yes Substance Use Type: Opiates Substance Use Frequency: Weekly Last Used Substance: Days (ago) Currently Displaying Signs/Symptoms of Drug Intoxication Withdrawal: No Any prior treatment program specific to substance use: Yes Have you been hit, kicked, punched, or otherwise hurt by someone within the past year? If so, by whom?: No Do you feel safe in your current relationship?: Yes Is there a partner from a previous relationship who is making you feel unsafe now?: No Are you made to feel afraid or neglected: No Are you DNR?: No Advance Directives: No Do you have thoughts of harming others: None Do you have a plan to hurt others: No Plan Recently lost weight without trying: No Nutrition Risks: No Nutritional Risk service: No Meds Allergies Allergy/AdvReac Type Severity Reaction Status Date / Time No Known Allergies Allergy Verified 10/01/23 12:58 Active Medications: Current Medications Acetaminophen (Acetaminophen 325 Mg Tablet) 650 mg PO Q6H PRN PRN Reason: Pain, Mild (Pain Scale 1-3) Last Admin: 10/02/23 05:25 Dose: 650 mg Lactated Ringer's (Lr) 1,000 mls @ 100 mls/hr IVCONT .Q10H [facility] Last Admin: 10/02/23 08:23 Dose: 100 mls/hr Vancomycin HCl 1,500 mg/ (Sodium Chloride) 500 mls @ 333.333 mls/hr IV Q12H [facility] Last Infusion: 10/01/23 23:19 Dose: Infused Oxycodone HCl (Oxycodone Hcl Immed Release 5 Mg Tablet) 5 mg PO Q4H PRN PRN Reason: Pain, Moderate(Pain Scale 4-6) Last Admin: 10/02/23 05:25 Dose: 5 mg Pharmacy Consult (Consult Rx Vancomycin Dosing) 1 each MISCELLANE DAILY PRN PRN Reason: Consult order Sodium Chloride (0.9 % Sodium Chloride Flush 3 Ml Syringe) 3 ml IVFLUSH QSHIFT [facility] Last Admin: 10/02/23 08:24 Dose: Not Given Physical Exam 2 Vital Signs and Narrative: Vital Signs: Last Vital Signs Temp 97.0 F 10/02/23 07:30 Pulse 52 10/02/23 07:30 Resp 18 10/02/23 07:30 BP 114/65 10/02/23 07:30 Pulse Ox 98 10/02/23 07:30 O2 Del Method Room Air 10/02/23 07:30 BMI result Body Mass Index 23.4 Const: Other: Constitutional : Awake, interactive, not in distress Neck : Normal inspection, Supple Cardiovascular : RRR, no JVP, no lower extremity edema Respiratory : good bilateral air entry, no crackles Gastrointestinal: soft, lax, Normal bowel sounds, Non tender Skin : Warm, Dry, right thumb covered with dressing Neurological : Alert & oriented x3, No focal deficit Results Labs 10/02/23 05:22 10/02/23 05:22 Labs: Laboratory Results - last 24 hr 10/01/23 10/01/23 10/02/23 03:40 11:12 05:22 MCV 78.3 L MCH 26.3 L MCHC 33.6 RDW 12.8 Plt Count 197 MPV 9.1 L Immature Gran % (Auto) 0.3 Neut % (Auto) 67.2 Lymph % (Auto) 23.3 [place] % (Auto) 8.9 Eos % (Auto) 0.1 Baso % (Auto) 0.2 Lymph # (Auto) 2.0 [place] # (Auto) 0.8 Eos # (Auto) 0.0 Baso # (Auto) 0.0 Abs Immat Gran (auto) 0.03 Absolute Neuts (auto) 5.8 Absolute Nucleated RBC 0.000 Nucleated RBC % (auto) 0.0 ESR 28 H Anion Gap 11 L Estim Creat Clear Calc 141.8 Estimated GFR > 60 Fasting Glucose 112 H Calcium 8.8 Total Creatine Kinase 95 C-Reactive Protein 1.69 H Urine Opiates Screen POSITIVE H Urine Fentanyl Screen POSITIVE H Ur Barbiturates Screen Not Detected Ur Phencyclidine Scrn Not Detected Ur Amphetamines Screen Not Detected U Benzodiazepines Scrn Not Detected Urine Cocaine Screen POSITIVE H U Marijuana (THC) Screen Not Detected Assessment and Plan (1) Osteomyelitis: Qualifiers: Laterality: right Osteomyelitis location: hand Status: Acute Plan A 38 years old male with PMH of infected tip of right thumb few weeks ago complicated by felon that failed to respond to Augmentin and he ended up in the hospital with swelling and erythema. Right thumb osteomyelitis post I&D Wound Culture from 10/01 positive for Staph, pending sensitivity blood culture still pending Pending repeat cultures Continue IV Vancomycin Pending ID evaluation will likely need PICC placement and 6 weeks of IV antibiotics ortho team following Thank you for the consult. will continue to follow with you as needed, please contact hospitalist team for any furhter questions.
[2023-10-02 09:15] VITALS: PULSE 58
[2023-10-02] MEDS: vancomycin HCL 1,500 MG in 0.9 % Sodium Chloride 500 ML 333.33 MG IV ×2 (09:19→21:31)
[2023-10-02] MEDS: methADONE HCl 20 MG/2 ML ORAL.CONC 30 MG PO (10:14)
--- NOTE | 2023-10-02 10:34 | MHC.RECOVRN ---
Met with pt in 359 after consult placed to Addiction Medicine for cocaine/heroin use. Pt had presented to the ED with right thumb infection, had been taking amoxicillin with no improvement and increased pain and swelling. Upon evaluation, pt was admitted surgically with felon of finger of right hand, laceration of right thumb with infection, and flexor tenosynovitis of thumb. Pt laying in bed, awake, alert, restless and diaphoretic. Pt reports heroin/fentanyl use, 1 bundle daily, IV, last use prior to arrival. Pt currently reports withdrawal symptoms including loose stool, restlessness, body aches, diaphoresis. Pt agreeable to methadone to address withdrawal symptoms. Denies questions or concerns for t/w. Discussed with Marion Horvath APRN.
--- NOTE | 2023-10-02 12:56 | MHC.CM.PN ---
MALE 38 DX OSTEO R THUMB He lives alone in [place]. He is independent with all functional mobility. A new HCP has been documented and scanned into EMR. Copies have been given to the patient. He does not have insurance or a PCP. A Financial manager loss prevention consult has been sent. The [facility] pamphlet has been given to the patient. DP home self care vs [facility] if LT IV ABX have been ordered at discharge. The patient is not eligible for Home services; because he does not have a signing MD or payor source. The Recovery nurse is working with the patient. He may need assist with transport home. He was informed that the [facility] Shuttle can provide transport to home if needed.
[2023-10-02] MEDS: methADONE HCl 20 MG/2 ML ORAL.CONC 10 MG PO (15:26)
[2023-10-02 15:34] VITALS: BP 130/60; PULSE 52; RESP 18; TEMP 36.3; O2SAT 99
[2023-10-02 16:00] VITALS: PULSE 52
--- NOTE | 2023-10-02 16:34 | HO.ADDICTCON ---
History of Present Illness Date of Service: 10/02/2023 Chief Complaint: Right thumb osteomylitis Reason for Consult: OUD-withdrawal Sources of Information: patient interviewed and chart reviewed HPI Narrative: Patient is a 38 year old male currently medically admitted with osteo of his thumb. He was seen earlier in the morning by internet sourcer and found to be in acute opiate withdrawal (see internet sourcer note for details). Methadone 30mg was ordered and administered. Seen by this curriculum writer and internet sourcer 2-3 hours after dose administered. Patient awake, alert, sitting up in bed. Engaged in interview, however somewhat guarded and requiring prompting/encouragement to answer some questions. He reports he has been using between 1-2 bundles of heroin/fentanyl daily, IV for the last 6 months. Prior to that he reports he had been in recovery for about 10 years. Reports treatment with methadone in the past and at that time his dose was 100mg. Denies any history of overdose. He is from [place] [facility], but moved here as his children live in [place]. He is renting a room in [place] --lives with a couple who own the home. Minimal social history provided. Patient expressing embarrassment and initially anxiety about reporting his substance use. He reports 30mg was helpful, he appeared comfortable and internet sourcer reported his appearance is much improved from earlier. He would like to continue titrating methadone dose and continue at discharge. Medical Evaluation Reviewed: Yes Review of Systems Constitutional: Reports as per HPI and Reports no additional constitutional complaints Diagnostics Vital Signs (24Hr): Vital Signs - 24 hr 10/01/23 16:36 10/01/23 17:36 10/01/23 18:11 Temperature 97.9 F 98.3 F Pulse Rate 74 62 68 Respiratory Rate 18 18 14 Blood Pressure 125/66 113/65 116/64 Pulse Oximetry 96 97 97 Oxygen Delivery Method Room Air Room Air Room Air 10/01/23 18:40 10/02/23 03:31 10/02/23 07:30 Temperature 97.7 F 97.3 F 97.0 F Pulse Rate 73 59 52 Respiratory Rate 18 16 18 Blood Pressure 132/67 125/63 114/65 Pulse Oximetry 98 98 98 Oxygen Delivery Method Room Air Room Air 10/02/23 15:34 Temperature 97.4 F Pulse Rate 52 Respiratory Rate 18 Blood Pressure 130/60 Pulse Oximetry 99 Oxygen Delivery Method Room Air BMI result Body Mass Index 23.4 Labs 10/02/23 05:22 10/02/23 05:22 Labs: Laboratory Results - last 48 hr 10/01/23 10/01/23 10/02/23 03:40 11:12 05:22 WBC 10.0 8.6 RBC 4.52 L 4.29 L Hgb 11.9 L 11.3 L Hct 35.4 L 33.6 L MCV 78.3 L 78.3 L MCH 26.3 L 26.3 L MCHC 33.6 33.6 RDW 12.9 12.8 Plt Count 230 197 MPV 9.3 L 9.1 L Immature Gran % (Auto) 0.2 0.3 Neut % (Auto) 63.7 67.2 Lymph % (Auto) 25.4 23.3 [place] % (Auto) 9.2 8.9 Eos % (Auto) 1.1 0.1 Baso % (Auto) 0.4 0.2 Lymph # (Auto) 2.5 2.0 [place] # (Auto) 0.9 0.8 Eos # (Auto) 0.1 0.0 Baso # (Auto) 0.0 0.0 Abs Immat Gran (auto) 0.02 0.03 Absolute Neuts (auto) 6.4 5.8 Absolute Nucleated RBC 0.000 0.000 Nucleated RBC % (auto) 0.0 0.0 ESR 28 H Sodium 140 138 Potassium 3.5 3.9 Chloride 102 105 Carbon Dioxide 28 26 Anion Gap 14 11 L BUN 13 10 Creatinine 0.75 0.72 Estim Creat Clear Calc 136.1 141.8 Estimated GFR > 60 > 60 Random Glucose 104 Fasting Glucose 112 H Lactic Acid 0.7 Calcium 9.1 8.8 Total Bilirubin 0.3 AST 19 ALT 20 Alkaline Phosphatase 63 Total Creatine Kinase 95 C-Reactive Protein 1.69 H Total Protein 8.1 H Albumin 3.9 Urine Opiates Screen POSITIVE H Urine Fentanyl Screen POSITIVE H Ur Barbiturates Screen Not Detected Ur Phencyclidine Scrn Not Detected Ur Amphetamines Screen Not Detected U Benzodiazepines Scrn Not Detected Urine Cocaine Screen POSITIVE H U Marijuana (THC) Screen Not Detected Imaging Radiology Impressions: ITS Impressions Hand/Wrist X-Ray 10/01/23 07:45 IMPRESSION: Osteomyelitis of right thumb Mental Status Exam Mental Status Exam Patient Appearance: Appropriate Level of Consciousness: Awake, Appropriate and Alert Patient Behavior: Appropriate, Guarded and Cooperative Mood Description: Calm Affect Description: Calm and Apprehensive Speech Pattern: Clear Medications Medications Current Medications Acetaminophen (Acetaminophen 325 Mg Tablet) 650 mg PO Q6H PRN PRN Reason: Pain, Mild (Pain Scale 1-3) Last Admin: 10/02/23 05:25 Dose: 650 mg Lactated Ringer's (Lr) 1,000 mls @ 100 mls/hr IVCONT .Q10H [facility] Last Admin: 10/02/23 08:23 Dose: 100 mls/hr Vancomycin HCl 1,500 mg/ (Sodium Chloride) 500 mls @ 333.333 mls/hr IV Q12H [facility] Last Infusion: 10/02/23 11:09 Dose: Infused Methadone HCl (Methadone Hcl 20 Mg/2 Ml Oral.Conc) 10 mg PO ONCE PRN PRN Reason: Opiate Withdrawal Last Admin: 10/02/23 15:26 Dose: 10 mg Oxycodone HCl (Oxycodone Hcl Immed Release 5 Mg Tablet) 5 mg PO Q4H PRN PRN Reason: Pain, Moderate(Pain Scale 4-6) Last Admin: 10/02/23 16:30 Dose: 5 mg Pharmacy Consult (Consult Rx Vancomycin Dosing) 1 each MISCELLANE DAILY PRN PRN Reason: Consult order Sodium Chloride (0.9 % Sodium Chloride Flush 3 Ml Syringe) 3 ml IVFLUSH QSHIFT [facility] Last Admin: 10/02/23 09:20 Dose: Not Given Allergies Allergies Allergy/AdvReac Type Severity Reaction Status Date / Time No Known Allergies Allergy Verified 10/01/23 12:58 Assessment & Plan Assessment & Plan (1) Opioid use disorder: Status: Acute Code(s): F11.90 - Opioid use, unspecified, uncomplicated Assessment and Plan: methadone 10mg X1 PRN ordered for today if patient requests it AM dose 50mg internet sourcer to check in over the wkend internet sourcer to coordinate referral to [facility] Total time managing care of this patient today __50__ minutes. PMFSH Past Medical History Medical History No pertinent past medical history Surgical History Surgical History H/O neck surgery History of appendectomy Social History Social History Household Members: None Housing: Apartment Do you presently have visiting nurse or other home services: No Alcohol intake: never Patient Tobacco Use Status: Current someday Tobacco user Tobacco use type: Cigarette Smoked in Last 30 Days: Yes Patient Interested in Nicotine Replacement: No Use of substances other than those prescribed or required for medical reasons: Yes Substance Use Type: Opiates Substance Use Frequency: Weekly Last Used Substance: Days (ago) Currently Displaying Signs/Symptoms of Drug Intoxication Withdrawal: No Any prior treatment program specific to substance use: Yes Have you been hit, kicked, punched, or otherwise hurt by someone within the past year? If so, by whom?: No Do you feel safe in your current relationship?: Yes Is there a partner from a previous relationship who is making you feel unsafe now?: No Are you made to feel afraid or neglected: No Are you DNR?: No Advance Directives: No Do you have thoughts of harming others: None Do you have a plan to hurt others: No Plan Recently lost weight without trying: No Nutrition Risks: No Nutritional Risk service: No
--- NOTE | 2023-10-02 17:01 | P.CNID_ITS ---
History of Present Illness Data of Consult Service Date: 10/02/23 Requesting physician: Hattie Bernardo Primary Care Provider: None Physician HPI Reason for consult: right thumb infection He presents with pain right thumb for 10 days. He has no fever or chills. It started as paronychia apparently. He is seeing Orthopedics. Review of Systems 2 Review of Systems: Yes all other systems are reviewed and are negative PMFSH Past Medical History Medical History No pertinent past medical history Family History Family history: reviewed and not pertinent Surgical History Surgical History H/O neck surgery History of appendectomy Social History Social History Household Members: None Housing: Apartment Do you presently have visiting nurse or other home services: No Alcohol intake: never Patient Tobacco Use Status: Current someday Tobacco user Tobacco use type: Cigarette Smoked in Last 30 Days: Yes Patient Interested in Nicotine Replacement: No Use of substances other than those prescribed or required for medical reasons: Yes Substance Use Type: Opiates Substance Use Frequency: Weekly Last Used Substance: Days (ago) Currently Displaying Signs/Symptoms of Drug Intoxication Withdrawal: No Any prior treatment program specific to substance use: Yes Have you been hit, kicked, punched, or otherwise hurt by someone within the past year? If so, by whom?: No Do you feel safe in your current relationship?: Yes Is there a partner from a previous relationship who is making you feel unsafe now?: No Are you made to feel afraid or neglected: No Are you DNR?: No Advance Directives: No Do you have thoughts of harming others: None Do you have a plan to hurt others: No Plan Recently lost weight without trying: No Nutrition Risks: No Nutritional Risk service: No Meds Allergies Allergy/AdvReac Type Severity Reaction Status Date / Time No Known Allergies Allergy Verified 10/01/23 12:58 Active Medications: Current Medications Acetaminophen (Acetaminophen 325 Mg Tablet) 650 mg PO Q6H PRN PRN Reason: Pain, Mild (Pain Scale 1-3) Last Admin: 10/02/23 05:25 Dose: 650 mg Lactated Ringer's (Lr) 1,000 mls @ 100 mls/hr IVCONT .Q10H [facility] Last Admin: 10/02/23 08:23 Dose: 100 mls/hr Vancomycin HCl 1,500 mg/ (Sodium Chloride) 500 mls @ 333.333 mls/hr IV Q12H [facility] Last Infusion: 10/02/23 11:09 Dose: Infused Methadone HCl (Methadone Hcl 20 Mg/2 Ml Oral.Conc) 10 mg PO ONCE PRN PRN Reason: Opiate Withdrawal Last Admin: 10/02/23 15:26 Dose: 10 mg Oxycodone HCl (Oxycodone Hcl Immed Release 5 Mg Tablet) 5 mg PO Q4H PRN PRN Reason: Pain, Moderate(Pain Scale 4-6) Last Admin: 10/02/23 16:30 Dose: 5 mg Pharmacy Consult (Consult Rx Vancomycin Dosing) 1 each MISCELLANE DAILY PRN PRN Reason: Consult order Sodium Chloride (0.9 % Sodium Chloride Flush 3 Ml Syringe) 3 ml IVFLUSH QSHIFT [facility] Last Admin: 10/02/23 09:20 Dose: Not Given Physical Exam 2 Vital Signs: Vital Signs: Last Vital Signs Temp 97.4 F 10/02/23 15:34 Pulse 52 10/02/23 15:34 Resp 18 10/02/23 15:34 BP 130/60 10/02/23 15:34 Pulse Ox 99 10/02/23 15:34 O2 Del Method Room Air 10/02/23 15:34 BMI result Body Mass Index 23.4 Const: General: cooperative HEENT: Head: Yes normal to inspection Face and sinus: Yes normal facial exam Mouth: Normal oral and palatal mucosa present Teeth and gingiva: d entition normal Eyes: General: appearance normal, both eyes and all related structures P upils: Equal, round and reactive pupils present Resp: Effort & Inspection: normal respiratory effort Cardio: Rate: regular rate Rhythm: regular rhythm GI: Palpation (GI): Soft to palpation and nontender : General: Yes no CVA tenderness Back/Spine/Pelvis: Back: no CVA tenderness Skin: General skin exam: no rashes or lesions noted Neuro: General: moves all extremities Cranial nerves: Yes Equal, round and reactive pupils present Extrem: Other: right thumb wrapped Psych: Appearance: grossly normal Results Labs 10/02/23 05:22 10/02/23 05:22 Labs: Short CBC 10/02/23 Range/Units 05:22 WBC 8.6 (4.8-10.8) X10*3/uL Hgb 11.3 L (14.0-18.0) g/dl Hct 33.6 L (42.0-52.0) % Plt Count 197 (160-400) X10*3/uL BMP 10/02/23 05:22 Sodium 138 Potassium 3.9 Chloride 105 Carbon Dioxide 26 BUN 10 Creatinine 0.72 Calcium 8.8 Microbiology Microbiology Results: Microbiology 10/01/23 14:24 Blood - Venous Blood Culture - Preliminary No growth after 24 hours. 10/01/23 14:11 Blood - Venous Blood Culture - Preliminary No growth after 24 hours. 10/01/23 14:55 Thumb Right - Thumb Gram Stain - Final 10/01/23 14:55 Thumb Right - Thumb Routine Culture - Preliminary Staphylococcus aureus 10/01/23 14:55 Thumb Right - Thumb Anaerobic Culture - Preliminary Culture in progress. 10/01/23 14:55 Thumb Right - Thumb Gram Stain - Final 10/01/23 14:55 Thumb Right - Thumb Routine Culture - Preliminary Staphylococcus aureus 10/01/23 14:55 Thumb Right - Thumb Gram Stain - Final 10/01/23 14:55 Thumb Right - Thumb Routine Culture - Preliminary Staphylococcus aureus 10/01/23 14:55 Thumb Right - Thumb Gram Stain - Final 10/01/23 14:55 Thumb Right - Thumb Routine Culture - Preliminary Staphylococcus aureus 10/01/23 03:43 Blood - Venous Blood Culture - Preliminary No growth after 24 hours. 10/01/23 03:40 Blood - Venous Blood Culture - Preliminary No growth after 24 hours. Assessment and Plan (1) Osteomyelitis: Qualifiers: Laterality: right Osteomyelitis location: hand Status: Acute Plan OM right thumb Organism staph aureus,pending cultures Six weeks IV antibiotics at [facility] since concern over PICC use illicit drug use and ensure compliance. Type to be determined,final culture tomorrow.
[2023-10-02 19:18] VITALS: BP 123/60; PULSE 63; RESP 20; TEMP 36.9; O2SAT 97
[2023-10-02 20:36] LABS: Vancomycin Random 7.1 mcg/mL (15-20)
[2023-10-02] MEDS: Melatonin 3 MG TABLET 6 MG PO (20:45)
[2023-10-02] MEDS: 0.9 % Sodium Chloride Flush 3 ML SYRINGE IVFLUSH (20:47)
--- NOTE | 2023-10-02 20:52 | HE.PHANOTE ---
Re: [place] Patient's renal function remains stable, however trough returned as 7.1. Patient's dose's frequency was increased to 1500mg Q8H. Estimated AUC 576. Next trough 10/03 at 1900.
[2023-10-03] MEDS: LORazepam 1 MG TABLET PO (01:22)
--- NOTE | 2023-10-03 03:37 | PC.NURSE ---
0100- patient stating to anxious, restless, and unable to settle down, noted repositioning self side to side. alert, co-operative, ivf infusing, dressing and natasha to right hand and thumb C-D-I. Patient asking for another dose of Methadone for his withdrawals. Hospitalist on duty updated and order received for PO Ativan. Patient okay to new order and willing to try, medicine given 0124. patient noted to relax and nap on and off, however, at 0220 pt stated still feels unsettled and anxious. Hospitalist alerted and ordered PO Methadone one time dose. Patient informed and while awaiting pharmacy to verify patient noted to fall asleep. Medicine did post at 0300 but will await to administer as resting well. No s/sx distress, will monitor closely.
[2023-10-03 04:00] VITALS: BP 124/66; PULSE 54; RESP 16; TEMP 36.6; O2SAT 96
[2023-10-03] MEDS: vancomycin HCL 1,500 MG in 0.9 % Sodium Chloride 500 ML 333.33 MG IV (05:01)
[2023-10-03] MEDS: methADONE HCl 20 MG/2 ML ORAL.CONC 10 MG PO (05:03)
--- NOTE | 2023-10-03 05:07 | PC.NURSE ---
0500-patient now awake past 30 minutes, feeling restless, vss, alert and co-op, ivabx as ordered, and after discussion, the one time Methadone dose from 0300 administered to help with withdrawal symptoms. Will continue to monitor closely.
[2023-10-03 06:24] LABS: MANUAL DIFF FLAG NO
[2023-10-03 06:27] LABS: Basophils Percent Auto 0.5 % (0-2); Hematocrit 32.3 % (42.0-52.0); Imm Gran Abs Auto 0.01 X10*3/uL (0.00-0.03); Imm Gran Pct Auto 0.2 % (0.0-0.4); Lymphocytes Absolute Auto 2.7 X10*3/uL (1.2-4.9); Lymphocytes Percent Auto 41.2 % (20-40); Mean Corpuscular HGB Conc 34.1 g/dl (31.0-36.0); Mean Corpuscular Hemoglobin 26.7 pg (27.0-33.0); Mean Corpuscular Volume 78.4 fL (80.0-98.0); Mean Platelet Volume 9.8 fL (9.4-12.4); Monocytes Absolute Auto 0.4 X10*3/uL (0.1-1.2); Monocytes Percent Auto 6.5 % (2-11); Neutrophils Absolute Auto 3.4 x10*3/uL (2.0-8.3); Neutrophils Percent Auto 51.6 % (45-73); Platelet Count 185 X10*3/uL (160-400); Red Blood Count 4.12 X10*6/uL (4.60-5.80); Red Cell Distribution Width 12.8 % (11.0-16.0); White Blood Count 6.5 X10*3/uL (4.8-10.8)
[2023-10-03 06:46] LABS: Anion Gap 10 (12-20); Blood Urea Nitrogen 9 mg/dL (9-16); Calcium 8.6 mg/dL (8.4-10.2); Carbon Dioxide 25 mmol/L (22-29); Chloride 107 mmol/L (96-108); Estimated Glomerular Filt Rate > 60; Glucose Fasting 102 mg/dL (60-99); Potassium 3.4 mmol/L (3.3-5.1); Sodium 139 mmol/L (135-145)
[2023-10-03 07:22] VITALS: BP 116/69; PULSE 51; RESP 14; TEMP 36.2; O2SAT 98
[2023-10-03] MEDS: Lactated Ringers 1,000 ML 100 ML IVCONT (08:13)
[2023-10-03] MEDS: methADONE HCl 20 MG/2 ML ORAL.CONC 50 MG PO (09:33)
[2023-10-03] MEDS: Acetaminophen 325 MG TABLET 650 MG PO ×2 (09:46→17:23)
[2023-10-03] MEDS: oxyCODONE HCl Immed Release 5 MG TABLET PO ×3 (09:46→21:28)
--- NOTE | 2023-10-03 09:59 | MHC.RECOVRN ---
Met with pt for follow up to yesterdays consult. Pt had just received his increased dose of 50mg methadone for W/D. He denied any W/D sx and none noted but he is having a lot of discomfort in surgical area on right hand. Pt reports that the amount of oxy he is receiving for the pain is not touching it because I have a high tolerance . T/W educated pt on the potential effects of methadone r/t pain relief with the increase. Also educated pt on elevation of hand to decrease swelling and therefor improve pain. Pt just had dressing changed prior to my visit and had just received his methadone 50mg and oxy PRN and was rating his pain at a 7. Effects of meds pending. Pt's mom was at bedside and pt gave me permission to speak freely in front of her. Pt denied any current questions. He still is planning on F/U with out pt. methadone once D/C. I educated him on how to contact [facility] for support and let him know I would check in on the effects of the med increase tomorrow if he is still admitted. Pt agreed. Report given to pt's nurse Luz.
--- NOTE | 2023-10-03 10:42 | PM.PNORT ---
Subjective Subjective Date of Service: 10/03/23 Interval history: POD2 s/p right thumb I&D No overnight events Pain is managed No additional complaints Communicating through [employer] Text with Luz Germain, RN at bedside performing dressing change Physical Exam Vital Signs: Vital Signs: Last Vital Signs Temp 97.2 F 10/03/23 07:22 Pulse 51 10/03/23 07:22 Resp 14 10/03/23 07:22 BP 116/69 10/03/23 07:22 Pulse Ox 98 10/03/23 07:22 O2 Del Method Room Air 10/03/23 07:22 BMI result Body Mass Index 23.4 Const: General: cooperative, healthy appearing and no acute distress Resp: Effort & Inspection: normal respiratory effort and able to speak in complete sentences Cardio: Rate: regular rate Peripheral pulses: Peripheral pulses 2+ throughout GI: Palpation (GI): Soft to palpation Skin: Lesions: no lesions Rashes: no rashes Extrem: Other: Procedures Date of Service Date of Service: 10/03/23 Progress Note: A&P Assessment and plan (1) Osteomyelitis: Status: Acute Assessment and Plan: Continue pain mgmnt Dressing changes once a day- Orders placed Dressing changed this morning with Luz Germain RN - Pictures provided through [employer] Text Sp[place]ke with ID via [employer] Text this morning and sent suseptabilities. Rec's are as follows: - IV Vanco x6 weeks -If Unwilling to go to rehab or leaves AMA: -PO Doxy x 8 weeks Dispo planning-Repeat I&D Thursday if patient is still here (2) Flexor tenosynovitis of thumb: Status: Acute (3) Laceration of right thumb with infection: Status: Acute (4) Felon of finger of right hand: Status: Acute Time Spent With Patient Time: Total time managing care of this patient today ____ minutes. Quality Stroke Does the patient have a stroke diagnosis?: No VTE Prior VTE?: No VTE Risk Level:: Surgical - low VTE Device Contraindication: N/A - Device Ordered VTE Drug Contraindication: Treatment Not Indicated
[2023-10-03] MEDS: vancomycin HCL 1,500 MG in 0.9 % Sodium Chloride 500 ML 333 MG IV (13:09)
--- NOTE | 2023-10-03 14:15 | MHC.RECOVRN ---
Went to check on pt following increase of methadone to 50mg/day. Pt in bed resting. He did appear sweating and restless. He reports that the increase in methadone is managing his pain better as well as his W/D sx. He is still reporting restlessness, sweating, diarrhea and anxiety. He would like to try an additional 5mg if possible. Provider Marion Horvath APRN and nurse Luz ma. Will continue to check on pt status while he is admitted.
--- NOTE | 2023-10-03 15:01 | MHC.CM.PN ---
PATIENT WILL REQUIRE PICC LINE INSERTION AND LT IV ABX. REFERRAL PLACED TO [facility].
[2023-10-03 15:16] VITALS: BP 126/70; PULSE 53; RESP 18; TEMP 36.9; O2SAT 98
[2023-10-03 19:26] VITALS: BP 118/56; PULSE 68; RESP 16; TEMP 36.6; O2SAT 99
[2023-10-03 19:49] LABS: Vancomycin Random 21.6 mcg/mL (15-20)
[2023-10-03] MEDS: vancomycin HCL 1,250 MG in 0.9 % Sodium Chloride 250 ML 166.67 MG IV (21:04)
[2023-10-03] MEDS: 0.9 % Sodium Chloride Flush 3 ML SYRINGE IVFLUSH (21:04)
[2023-10-03] MEDS: Melatonin 3 MG TABLET 6 MG PO (21:29)
[2023-10-04 04:00] VITALS: BP 133/66; PULSE 45; RESP 16; TEMP 36.1; O2SAT 98
[2023-10-04 04:47] VITALS: PULSE 50
[2023-10-04] MEDS: vancomycin HCL 1,250 MG in 0.9 % Sodium Chloride 250 ML 166.67 MG IV (06:34)
[2023-10-04 06:40] LABS: MANUAL DIFF FLAG NO
[2023-10-04 06:55] LABS: Anion Gap 13 (12-20); Blood Urea Nitrogen 12 mg/dL (9-16); Carbon Dioxide 28 mmol/L (22-29); Chloride 106 mmol/L (96-108); Creatinine Clr Calc Pharmacy 132.6; Estimated Glomerular Filt Rate > 60; Glucose Fasting 93 mg/dL (60-99); Potassium 3.9 mmol/L (3.3-5.1); Sodium 143 mmol/L (135-145)
[2023-10-04 07:08] LABS: Basophils Percent Auto 0.6 % (0-2); Eosinophils Absolute Auto 0.1 X10*3/uL (0.0-0.4); Eosinophils Percent Auto 1.6 % (0-4); Hematocrit 35.5 % (42.0-52.0); Hemoglobin 11.8 g/dl (14.0-18.0); Imm Gran Abs Auto 0.01 X10*3/uL (0.00-0.03); Imm Gran Pct Auto 0.1 % (0.0-0.4); Lymphocytes Absolute Auto 2.9 X10*3/uL (1.2-4.9); Lymphocytes Percent Auto 41.9 % (20-40); Mean Corpuscular HGB Conc 33.2 g/dl (31.0-36.0); Mean Corpuscular Hemoglobin 26.2 pg (27.0-33.0); Mean Corpuscular Volume 78.9 fL (80.0-98.0); Mean Platelet Volume 9.8 fL (9.4-12.4); Monocytes Absolute Auto 0.5 X10*3/uL (0.1-1.2); Monocytes Percent Auto 6.8 % (2-11); Neutrophils Absolute Auto 3.4 x10*3/uL (2.0-8.3); Platelet Count 220 X10*3/uL (160-400); Red Cell Distribution Width 12.9 % (11.0-16.0)
[2023-10-04] MEDS: 0.9 % Sodium Chloride Flush 3 ML SYRINGE IVFLUSH (07:32)
[2023-10-04] MEDS: methADONE HCl 20 MG/2 ML ORAL.CONC 60 MG PO (07:32)
[2023-10-04] MEDS: oxyCODONE HCl Immed Release 5 MG TABLET PO (07:35)
[2023-10-04] MEDS: Acetaminophen 325 MG TABLET 650 MG PO (07:35)
[2023-10-04 07:39] VITALS: BP 119/70; PULSE 47; RESP 14; TEMP 36.4; O2SAT 98
[2023-10-04 08:02] VITALS: PULSE 51
--- NOTE | 2023-10-04 08:52 | PM.PNORT ---
Subjective Subjective Date of Service: 10/04/23 Interval history: POD23s/p right thumb I&D No overnight events Pain is managed No additional complaints Layig in bed comfortably Physical Exam Vital Signs: Vital Signs: Last Vital Signs Temp 97.5 F 10/04/23 07:39 Pulse 51 10/04/23 08:02 Resp 14 10/04/23 07:39 BP 119/70 10/04/23 07:39 Pulse Ox 98 10/04/23 07:39 O2 Del Method Room Air 10/04/23 07:39 BMI result Body Mass Index 23.4 Const: General: cooperative, healthy appearing and no acute distress Resp: Effort & Inspection: normal respiratory effort and able to speak in complete sentences Cardio: Rate: regular rate Peripheral pulses: Peripheral pulses 2+ throughout GI: Palpation (GI): Soft to palpation Skin: Lesions: no lesions Rashes: no rashes Extrem: Other: Right thumb dressings are clean, dry, and intact. perfusing tissue at the distal end of the thumb. No active drainage at the finger tip. Procedures Date of Service Date of Service: 10/04/23 Progress Note: A&P Assessment and plan (1) Osteomyelitis: Status: Acute Assessment and Plan: Continue pain mgmnt Dressing was changed at bedside this morning by ortho JAIME Dressing changes once a day- Orders placed Dressing changed this morning Spopke with ID via [place] Text this morning and sent suseptabilities. Rec's are as follows: - IV Vanco x6 weeks -If Unwilling to go to rehab or leaves AMA: -PO Doxy x 8 weeks Dispo planning-Repeat I&D tomorrow (2) Flexor tenosynovitis of thumb: Status: Acute (3) Laceration of right thumb with infection: Status: Acute (4) Felon of finger of right hand: Status: Acute Time Spent With Patient Time: Total time managing care of this patient today ____ minutes. Quality Stroke Does the patient have a stroke diagnosis?: No VTE Prior VTE?: No VTE Risk Level:: Surgical - low VTE Device Contraindication: N/A - Device Ordered VTE Drug Contraindication: Treatment Not Indicated
--- NOTE | 2023-10-04 12:26 | MHC.RECOVRN ---
T/W went to F/U on pt's increase in methadone dosing. Pt was increased to 60mg effective this AM. Pt in bed awake and alert with mom at bedside. Pt rates his thumb pain a 2/10, states he has not needed the oxy for pain and denies W/D. No W/D sx observed. Appears stable on 60mg methadone at this time. Pt was started on IV abx for MRSA infection. He was referred to inpt F/U for abx treatment but has decided that he would like to leave today on oral ABX. T/W educated pt on risks of going off IV abx. Pt states that he understands and accepts these risks. T/W reminded pt that he was connected to [facility] for methadone F/U and that floor nurse Yanique would give him his last dose letter. Pt encouraged to return to ER if infection worsens upon D/C.
--- NOTE | 2023-10-04 13:23 | MHC.CM.PN ---
Per RN patient left AMA. CM unable to meet with patient prior to leaving.
--- NOTE | 2023-10-12 15:04 | PM.DS ---
DS: Providers Provider Date of Service: 10/04/23 Date of admission: 10/01/23 10:23 Primary care physician: None Physician Consults: 10/01/23 10:23 Consult to Hospitalist Routine Comment: Consulting Provider: Hospitalist Reason For Exam: routine medical management Consult to Infectious Diseases Routine Consulting Provider: [facility] Infectious Disease Reason for consultation: right thumb osteomylitis 10/01/23 19:44 Addiction Medicine Routine Consulting Provider: Addiction Covering Reason for consultation: cocaine/heroin use Has provider been notified: Yes DS: Diagnosis Discharge Diagnosis (1) Osteomyelitis: Status: Acute (2) Flexor tenosynovitis of thumb: Status: Acute (3) Laceration of right thumb with infection: Status: Acute (4) Felon of finger of right hand: Status: Acute DS: Summary Hospital Course Hospital Course: The patient underwent a successful right thumb I and D felon, right thumb I and D flexor tendon sheath, and right thumb I and D distal phalanx bone they were transferred to PACU and then to the floor to recover. During their stay, their vitals were stable, afebrile at 97.5. Labs were unremarkable, H/H 11.8/35.5. POD 1 the dressing changed this morning at bedside and packing pulled. ID consult was placed for abx recommendations and the plan was to possibly repeat I&D that following Thursday if patient did not leave AMA. Unfortunately, the patient ended up leaving AMA. The risks were discussed with the patient prior to leaving. Time Attestation Discharge Coordination Time: discharge time of ____ minutes Quality: Safe Use of Opioids Does Pt have an Active Cancer Diagnosis on the Problem List?: No Quality: Stroke Does the patient have a stroke diagnosis?: No Physical Exam Vital Signs: Vital Signs: Last Vital Signs Temp 97.5 F 10/04/23 07:39 Pulse 51 10/04/23 08:02 Resp 14 10/04/23 07:39 BP 119/70 10/04/23 07:39 Pulse Ox 98 10/04/23 07:39 O2 Del Method Room Air 10/04/23 07:39 BMI result Body Mass Index 23.4 Const: General: cooperative, healthy appearing and no acute distress Resp: Effort & Inspection: normal respiratory effort and able to speak in complete sentences Cardio: Rate: regular rate Peripheral pulses: Peripheral pulses 2+ throughout GI: Palpation (GI): Soft to palpation Skin: Lesions: no lesions Rashes: no rashes Extrem: Other: Right thumb dressings are clean, dry, and intact. perfusing tissue at the distal end of the thumb. No active drainage at the finger tip. DS: Data Data Completed and Pending Completed studies during hospitalization [Text1]: Procedures Excision of Right Finger Phalanx, Open Approach (10/01/23) Introduction of Anesthetic Agent into Peripheral Nerves and Plexi, Percutaneous Approach (10/01/23) Discharge Plan Discharge Patient Disposition: Left Against Medical Advice Discharge Diagnosis: hand infection right Referrals: Physician,None [Primary Care Provider] - 1 Week Discharge Medications: New doxycycline hyclate 100 mg tablet 100 mg PO BID 56 Days Qty: 112 0RF Discontinued amoxicillin 500 mg tablet 500 mg PO BID Qty: 20 0RF hydrocodone-acetaminophen 5-325 mg tablet 1 tab PO Q6H PRN (Reason: pain) Qty: 12 0RF Rx Instructions: partial fill okay; Partial Fill upon patient request. Discharge Orders: Discharge Order (Routine); Ordered 10/11/23 Ordered By: Hattie Bernardo Diet: Advance to usual diet Activity on Discharge: keep dressing clean, dr, intact with daily dressing changes Care Plan Goals: Irradicate infection in the right finger Health Concerns: Opioid use disorder Multiple substance abuse disorder Plan of Treatment: Left AMA Assessment: Left AMA Discharge Date/Time: 10/04/23 12:43
== END 2023-10-04 12:43 | disposition left against medical advice (07) | DRG 516 ==
LOC: HO.ED 08:38 → HO.SSS 10:21 → HO.SSSA 12:58 → HO.S3 18:05
PROVIDERS: Orthopaedic Surgery; Physician Assistant Medical; Admitting Provider Physician Assistant; Emergency Provider Emergency Medicine; Visit Provider Physician Assistant
PROC: 0PBT0ZZ Excision of Right Finger Phalanx, Open Approach (ICD-10-PCS; principal; 2023-10-01 15:20)
DX: M65.18 Other infective (teno)synovitis, other site (principal); I96 Gangrene, not elsewhere classified; M86.9 Osteomyelitis, unspecified; G89.18 Other acute postprocedural pain; L03.011 Cellulitis of right finger; F17.210 Nicotine dependence, cigarettes, uncomplicated; Z71.6 Tobacco abuse counseling
CPT/HCPCS: 36415; 73110; 73130; 80048; 80053; 80202; 80307; 82550; 83605; 85025; 85652; 86140; 87040; 87070; 87073; 87077; 87186; 87205; 99284; J0665; J1885; J2250; J2543; J3370; J3371; J7120

== ENCOUNTER → 2023-10-01 10:12 | Outpatient (BNV) | payer SELFPAY | PROVIDERS: Emergency Provider Emergency Medicine; Visit Provider Orthopaedic Surgery | DX: L03.011 Cellulitis of right finger (principal); S61.011A Laceration without foreign body of right thumb without damage to nail, initial encounter; L08.9 Local infection of the skin and subcutaneous tissue, unspecified; M65.9 Synovitis and tenosynovitis, unspecified; M86.141 Other acute osteomyelitis, right hand | CPT/HCPCS: 26011; 26020; 26034; 99024; 99223 ==

== ENCOUNTER → 2023-10-01 10:23 | Outpatient (BNV) | payer SELFPAY | PROVIDERS: Admitting Provider Physician Assistant; Emergency Provider Emergency Medicine; Visit Provider Student in an Organized Health Care Education/Training Program | DX: M86.141 Other acute osteomyelitis, right hand (principal) | CPT/HCPCS: 99221 ==

== ENCOUNTER → 2023-10-01 10:23 | Outpatient (BNV) | payer SELFPAY | PROVIDERS: Admitting Provider Physician Assistant; Emergency Provider Emergency Medicine; Visit Provider Internal Medicine | DX: M86.9 Osteomyelitis, unspecified (principal) | CPT/HCPCS: 99222 ==

== ENCOUNTER → 2023-10-01 10:23 | Outpatient (BNV) | payer SELFPAY | PROVIDERS: Admitting Provider Physician Assistant; Emergency Provider Emergency Medicine; Visit Provider Nurse Practitioner Psychiatric/Mental Health | DX: F11.90 Opioid use, unspecified, uncomplicated (principal) | CPT/HCPCS: 99222; G2213 ==